=== PATIENT | male | born 1950 | race Caucasian/White ===

== ENCOUNTER → 2016-05-07 | Outpatient (CLI) | payer MEDICARE, OTHER ==
[~2016-05-07] VITALS: Ht 33 cm; Wt 0.5 kg
[~2016-05-07] MED LIST: AMI200T NG; ASPI-264 PO; ATE50T PO; ATOR20TA50 PO; CYANOCOBALAMIN (B-12) 1000 MCG/1 ML VIAL IM ONE; CYANOCOBALAMIN (B-12) 1000 MCG/1 ML VIAL ONE; FLUC200T35 PO; FLUT250M2 INH; FOSI40TA2 PO; NIF10C PO; NITR0.4D10 TD; PANT40TA2 PO; SACC250C PO; SODIUM CHLORIDE 0.9% 1,000 ML IV SCH; SULF400T11 PO; TIOTCAP INH
[2016-05-07 16:30] VITALS: BP 129/63
== END | disposition home or self-care (01) ==
LOC: CHF HDHVI 12:35
PROVIDERS: ATTEND Internal Medicine Cardiovascular Disease
DX: I10 Essential (primary) hypertension (principal); D64.9 Anemia, unspecified; J44.9 Chronic obstructive pulmonary disease, unspecified; E78.00 Pure hypercholesterolemia, unspecified; J18.9 Pneumonia, unspecified organism; R32 Unspecified urinary incontinence; G93.40 Encephalopathy, unspecified
CPT/HCPCS: 96360; 96361; 96372; G0463